=== PATIENT | female | born 1980 | race Two or more races ===

== ENCOUNTER 2018-06-08 10:50 | Outpatient (CLI) | payer OTHER | END 2018-06-08 11:37 | disposition home or self-care (01) | LOC: LAB 10:50 | DX: N91.2 Amenorrhea, unspecified (principal); N92.1 Excessive and frequent menstruation with irregular cycle; E03.8 Other specified hypothyroidism; N80.8 Other endometriosis ==

== ENCOUNTER 2018-06-08 11:11 | Outpatient (CLI) | payer OTHER | END 2018-06-08 15:00 | disposition home or self-care (01) | LOC: RX STUDY 11:11 | DX: N80.8 Other endometriosis (principal) ==

== ENCOUNTER 2019-10-16 09:48 | Inpatient (IN) | payer OTHER ==
[~2019-10-16] VITALS: Ht 149.9 cm; Wt 3.2 kg
[2019-10-23] MEDS ORDERED: DICLEGIS PO (11:11)
[2019-10-31] MEDS ORDERED: DICLEGIS DR 101 EACH PO (07:51)
[2019-11-03] MEDS ORDERED: KETO10TA2 PO (09:28)
[2019-11-03] MEDS ORDERED: OXYC1TAB9 PO (09:29)
== END 2019-11-03 14:00 | disposition home or self-care (01) | DRG 788 ==
LOC: OB/GYN 10-31 05:45 → O/R 10-31 05:45 → OB/GYN 10-31 12:01
PROVIDERS: ADMIT Obstetrics & Gynecology
PROC: 4A1HXFZ Monitoring of Products of Conception, Cardiac Rhythm, External Approach (ICD-10-PCS; 2019-10-31)
PROC: 10E0XZZ Delivery of Products of Conception, External Approach (ICD-10-PCS; 2019-10-31)
PROC: 10D00Z1 Extraction of Products of Conception, Low, Open Approach (ICD-10-PCS; principal; 2019-10-31 08:15)
DX: O82 Encounter for cesarean delivery without indication (principal); Z3A.39 39 weeks gestation of pregnancy; Z37.0 Single live birth

== ENCOUNTER 2021-10-06 12:31 | Inpatient (IN) | payer OTHER ==
[~2021-10-06] VITALS: Ht 149.9 cm; Wt 2.7 kg
[~2021-10-06 12:31] MED LIST: ATABEX DHA 200200 MG PO; DICLEGIS DR 101 EACH PO; DICLEGIS PO; KETO10TA2 PO; OXYC1TAB9 PO; ZOFRAN8 MG PO
[2021-10-16] MEDS ORDERED: HYDROCHLOROTH12.5 MG (14:21)
[2021-10-18] MEDS ORDERED: KETO10TA2 PO (10:45)
[2021-10-18] MEDS ORDERED: OXYC1TAB9 PO (10:46)
== END 2021-10-18 11:19 | disposition home or self-care (01) | DRG 788 ==
LOC: OB/GYN 10-16 07:00 → O/R 10-16 12:32 → SURG-SUITE 10-16 17:19
PROVIDERS: ADMIT Obstetrics & Gynecology; ATTEND Obstetrics & Gynecology
PROC: 4A1HXCZ Monitoring of Products of Conception, Cardiac Rate, External Approach (ICD-10-PCS; 2021-10-16)
PROC: 10D00Z1 Extraction of Products of Conception, Low, Open Approach (ICD-10-PCS; principal; 2021-10-16 07:00)
DX: O34.211 Maternal care for low transverse scar from previous cesarean delivery (principal); Z3A.38 38 weeks gestation of pregnancy; Z37.0 Single live birth; Z20.822 Contact with and (suspected) exposure to COVID-19